=== PATIENT | female | born 1990 | race Caucasian/White ===

== ENCOUNTER 2016-06-17 18:31 | Emergency (ER) | payer BC, OTHER ==
[2016-06-17 18:39] VITALS: BP 135/82; PULSE 90; RESP 14; TEMP 99.1; O2SAT 95
--- NOTE | 2016-06-17 19:23 | UCPHY ---
H & P Time Seen by Provider: 06/17/16 19:08 Patient Type: Established HPI/ROS: This patient complains of sore throat and cough. She explains that she became ill 1 week ago with hoarse voice and sore throat of moderate intensity associated with nasal congestion followed by coughing. The coughing has become more prominent more productive now with dark green discharge/sputum. She also developed fevers over the past few days. She has decreased sleep due to the frequent coughing. She notes no exacerbating or alleviating factors for her symptoms. ROS: No high fevers or chills. No other constitutional symptoms. HEENT: No ear pain. No facial pain. Pulmonary: No pleuritic pain or respiratory distress. Cardiovascular: No lightheadedness or heart palpitations. No lower extremity swelling. GI: No nausea vomiting or belly pain. 10 point ROS is otherwise negative. Past Medical/Surgical History: Family history of him grandmother with involved heart disease required 2 open heart surgeries. Family is uncertain of the nature of her valvular heart disease with his congenital or not. Smoking Status: Never smoked Physical Exam: General Appearance: Alert, no distress. Eyes: Pupils equal and round no pallor or injection. ENT, Mouth: Mucous membranes moist. Oropharynx: No significant erythema or exudates. She has a slightly hoarse voice. Ears: External canals are clear bilaterally she has clear effusions bilaterally but no erythema to the TMs. Neck: Supple with no meningismus Respiratory: Mild expiratory wheeze bilaterally. Minimal rhonchi. No rales. Cardiovascular: Regular rate and rhythm. She has a 1-2 /6 holosystolic murmur with mild end -systolic click no JVD. No peripheral edema. No splinter hemorrhages. No fingernails or toenails clubbing Gastrointestinal: Abdomen is soft and nontender, no masses, bowel sounds normal. Neurological: Alert with no focal deficits Skin: Warm and dry, no rashes. Extremities are symmetrical, full range of motion. Psychiatric: Mood and affect are normal DIFFERENTIAL DIAGNOSIS: After history and physical exam differential diagnosis was considered for bronchitis, URI with cough and RAD, pharyngitis-strep versus viral. Bicuspid aortic valve, mitral valve regurg or prolapse. Doubt endocarditis Constitutional: Initial Vital Signs Temperature (C) 37.3 C 06/17/16 18:37 Heart Rate 90 06/17/16 18:37 Respiratory Rate 14 06/17/16 18:37 Blood Pressure 135/82 H 06/17/16 18:37 O2 Sat (%) 95 06/17/16 18:37 O2 Delivery Mode Room Air Allergies/Adverse Reactions: No Known Allergies Allergy (Verified 06/17/16 18:39) Home Medications: Medication Instructions Recorded Zoloft 200 mg PO DAILY 01/17/10 LORazepam 06/24/13 Albuterol Hfa Anes Only [Proair 2 puffs IH Q4 PRN #1 mdi 06/17/16 Hfa Icu (*)] Azithromycin [Zithromax] 250 mg PO DAILY #6 tab 06/17/16 Fluticasone Nasal [Flonase Nasal 2 sprays NASAL DAILY #1 mdi 06/17/16 [place] (RX)] Guaifenesin/Codeine Phosphate 5 - 10 ml PO Q6 PRN #120 ml 06/17/16 [Guaifenesin-Codeine Liquid] MDM/Departure - MDM Diagnostics: Rapid strep is negative. ED Course/Re-evaluation: Discussion: Patient here with bronchitis, serous otitis and systolic murmur. Systolic murmur is subtle. This may be some flow murmur verses bicuspid aortic valve, mitral valve abnormality or other. No evidence of CHF, significant infectious process. She has no fever. No septic findings. I counseled regarding this. I recommended follow up with Cardiology for further evaluation. - Depart Disposition: Home, Routine, Self-Care Clinical Impression: Bronchitis, Systolic murmur Condition: Good Instructions: Heart Murmur (ED), Acute Bronchitis (ED) Additional Instructions: Diagnoses: 1. Acute bronchitis 2. Serous otitis 3. Systolic heart murmur Plan: Humidifier Albuterol inhaler for cough, wheeze or shortness of breath Guaifenesin with codeine for cough prevents sleep Flonase steroid nasal spray Call Dr. Perera-activity therapist arrange follow-up appointment for sometime within the next 7-10 days regarding or murmur. Go to the emergency department for any significant worsening of her symptoms despite the treatment plan Prescriptions: Fluticasone Nasal [Flonase Nasal [place] (RX)] 2 sprays NASAL DAILY #1 mdi Guaifenesin/Codeine Phosphate [Guaifenesin-Codeine Liquid] 5 - 10 ml PO Q6 PRN # 120 ml PRN Reason: Cough Albuterol Hfa Anes Only [Proair Hfa Icu (*)] 2 puffs IH Q4 PRN #1 mdi PRN Reason: Wheezing Azithromycin [Zithromax] 250 mg PO DAILY #6 tab Referrals: Toshia Ricks [Primary Care Provider] - As per Instructions Salena Perera MD [Medical Doctor] - As per Instructions - PQRS PQRS Measurement: NA
== END 2016-06-17 19:35 | disposition home or self-care (01) ==
LOC: CED 18:31
DX: J40 Bronchitis, not specified as acute or chronic (principal); R01.1 Cardiac murmur, unspecified
CPT/HCPCS: 87880-PO; 99214-PO; G0463-PO